=== PATIENT | female | born 1975 | race Caucasian/White ===

== ENCOUNTER 2016-08-01 14:31 | Emergency (ER) | payer BC ==
[2016-08-01 14:58] VITALS: BP 129/90
--- NOTE | 2016-08-01 15:27 | UC ---
Throat Pain/Nasal Lasha HPI - HPI Summary HPI Summary: cough and cold symptoms, laryngitis for 3-4 days, no fevers - History of Current Complaint Chief Complaint: UCGeneralIllness Stated Complaint: COUGH Time Seen by Provider: 08/01/16 14:56 Hx Obtained From: Patient Hx Last Menstrual Period: NOW ?: No Onset/Duration: Gradual Onset, Lasting Days, Still Present Severity: Mild Cough: Nonproductive Associated Signs & Symptoms: Positive: Hoarseness, Nasal Discharge - Allergies/Home Medications Allergies/Adverse Reactions: Allergies Allergy/AdvReac Type Severity Reaction Status Date / Time No Known Allergies Allergy Verified 08/01/16 14:50 Home Medications: Home Medications Escitalopram Oxalate [Lexapro] 1 tab BEDTIME 08/01/16 [History Confirmed ] PMH/Surg Hx/FS Hx/Imm Hx Previously Healthy: No Endocrine History Of: Denies: Diabetes, Thyroid Disease Cardiovascular History Of: Reports: Hypertension - ON MEDS Denies: Cardiac Disorders, Pacemaker/ICD Respiratory History Of: Denies: COPD, Asthma GI/ History Of: Denies: Ulcer, Renal Disease Cancer History Of: Denies: Breast Cancer - Surgical History Surgical History: Yes Surgery Procedure, Year, and Place: Appendectomy and hernia repair as a baby, Gallbladder 2012, Tonsils and adenoids removed - Family History Known Family History: Positive: Cardiac Disease, Hypertension Family History: Father - TIA - Social History Occupation: Employed Full-time Lives: With Family Alcohol Use: Rare Substance Use Type: None Smoking Status (MU): Former Smoker Type: Cigarettes Amount Used/How Often: 1/2 ppd Length of Time of Smoking/Using Tobacco: 22 years Have You Smoked in the Last Year: Yes - Immunization History Most Recent Influenza Vaccination: 2016 Review of Systems Constitutional: Fatigue Skin: Negative Eyes: Negative ENT: Sore Throat, Nasal Discharge Respiratory: Cough Cardiovascular: Negative Gastrointestinal: Negative Genitourinary: Negative Motor: Negative Neurovascular: Negative Musculoskeletal: Negative Neurological: Negative Psychological: Negative All Other Systems Reviewed And Are Negative: Yes Physical Exam Triage Information Reviewed: Yes Appearance: Well-Appearing, Well-Nourished, Obese Vital Signs: Initial Vital Signs Temp 97 F 08/01/16 14:53 Pulse 71 08/01/16 14:53 Resp 18 08/01/16 14:53 BP 129/90 08/01/16 14:53 Pulse Ox 100 08/01/16 14:53 Vital Signs Reviewed: Yes Eye Exam: Normal Eyes: Positive: Conjunctiva Clear ENT Exam: Normal ENT: Positive: Normal ENT inspection, Hearing grossly normal, Pharynx normal, Nasal drainage, TMs normal, Muffled/hoarse voice. Negative: Nasal congestion, Tonsillar swelling, Tonsillar exudate, Trismus Dental Exam: Normal Neck exam: Normal Neck: Positive: Supple, Nontender, No Lymphadenopathy Respiratory Exam: Normal Respiratory: Positive: Chest non-tender, Lungs clear, Normal breath sounds, No respiratory distress, No accessory muscle use Cardiovascular Exam: Normal Cardiovascular: Positive: RRR, No Murmur, Pulses Normal, Brisk Capillary Refill Musculoskeletal Exam: Normal Musculoskeletal: Positive: Strength Intact, ROM Intact, No Edema Neurological Exam: Normal Neurological: Positive: Alert, Muscle Tone Normal Psychological Exam: Normal Skin Exam: Normal Diagnostics - Laboratory Diagnostic Studies Completed/Ordered: RST(-) Throat Pain/Nasal Course/Dx - Course Assessment/Plan: rest, increase fluids, tylenol, ibuprofen follow with pcp prn - Differential Dx/Diagnosis Differential Diagnosis/HQI/PQRI: Laryngitis, Otitis Media, Pharyngitis, Sinusitis, URI Provider Diagnoses: URI, Laryngitis Discharge - Discharge Plan Condition: Stable Disposition: HOME Patient Education Materials: Laryngitis (ED), Viral Syndrome (ED) Forms: *Work Release Referrals: Mike Stoll NP [Primary Care Provider] - 5 Days
== END 2016-08-01 15:35 | disposition home or self-care (01) ==
LOC: UCEAST 14:31
DX: J06.9 Acute upper respiratory infection, unspecified (principal); J04.0 Acute laryngitis; I10 Essential (primary) hypertension; Z87.891 Personal history of nicotine dependence
CPT/HCPCS: 87651; 99211; G0463

== ENCOUNTER 2016-09-06 12:10 | Emergency (ER) | payer BC ==
[2016-09-06 12:48] LABS: Hematocrit 39 % (35-47); Hemoglobin 12.9 g/dl (12.0-16.0); Mean Corpuscular HGB Conc 33 g/dl (31-36); Mean Corpuscular Hemoglobin 27 pg (27-31); Mean Corpuscular Volume 81 fL (80-97); Mean Platelet Volume 8 um3 (7.4-10.4); Red Blood Count 4.85 10^6/ul (4.0-5.4); Red Cell Distribution Width 15 % (10.5-15); White Blood Count 6.6 10^3/ul (3.5-10.8)
--- NOTE | 2016-09-06 12:59 | RAD ---
Indication: Chest pain. Single frontal view of the chest performed at 1242 hours was reviewed. No prior study is available for comparison. No mediastinal shift is noted. Heart is of normal size and configuration. Lung garcia appear clear. IMPRESSION: NO ACTIVE CARDIOPULMONARY DISEASE IS NOTED.
[2016-09-06 13:02] LABS: Albumin 3.9 g/dL (3.2-5.2); BUN/Creatinine Ratio 18.3 (8-20); Calcium 8.9 mg/dL (8.6-10.3); EGFR African American 97.9 (>60); EGFR Non-African American 76.1 (>60); Globulin 2.7 g/dL (2-4); Potassium 4.1 mmol/L (3.5-5.0); Total Bilirubin 0.4 mg/dL (0.2-1.0); Total Protein 6.6 g/dL (6.4-8.9)
[2016-09-06] MEDS ORDERED: Ketorolac INJ* 30 MG/ML 1 ML VIAL IV PUSH ONE (13:17)
[2016-09-06 14:05] LABS: Urine Bacteria Absent (Absent); Urine Bilirubin Negative (Negative); Urine Glucose Negative (Negative); Urine Nitrite Negative (Negative)
--- NOTE | 2016-09-06 15:38 | ED ---
Roman Jaeger Billy, scribed for Clif Clayton MD on 09/06/16 at 1229 . HPI Chest Pain - HPI Summary HPI Summary: Patient is a 41 year-old female coming to [facility] presenting with non-radiating left-anterior chest pain starting at rest. Onset at 1100. She describes "contraction"-like pain at onset which lasted for several seconds (severity 10/ 10), before lessening to a constant sore pain (severity 5/10). Patient reports mild dizziness but denies any nausea, vomiting, or SOB. Patient has had chest pain in the past, but her last stress test was approximately 10 years ago. - History of Current Complaint Chief Complaint: EDChestPainROMI Time Seen by Provider: 09/06/16 12:14 Hx Obtained From: Patient Onset/Duration: Started Hours Ago, Still Present Time of Onset: 11:00 Timing: Constant Initial Severity: Moderate Current Severity: Moderate Pain Intensity: 5 Pain Scale Used: 0-10 Numeric Chest Pain Location: Left Anterior Chest Pain Radiates: No Character: Other: - "contraction" followed by soreness Aggravating Factor(s): Nothing Alleviating Factor(s): Nothing Associated Signs and Symptoms: Positive: Dizziness. Negative: Shortness of Breath, Nausea, Vomiting - Allergy/Home Medications Allergies/Adverse Reactions: Allergies Allergy/AdvReac Type Severity Reaction Status Date / Time No Known Allergies Allergy Verified 08/01/16 14:50 PMH/Surg Hx/FS Hx/Imm Hx Endocrine/Hematology History: Denies: Hx Diabetes, Hx Thyroid Disease Cardiovascular History: Reports: Hx Hypertension - ON MEDS Denies: Hx Pacemaker/ICD Respiratory History: Denies: Hx Asthma, Hx Chronic Obstructive Pulmonary Disease (COPD) GI History: Denies: Hx Ulcer History: Denies: Hx Renal Disease Sensory History: Denies: Hx Hearing Aid Psychiatric History: Denies: Hx Panic Disorder - Surgical History Surgery Procedure, Year, and Place: Appendectomy and hernia repair as a baby, Gallbladder 2012, Tonsils and adenoids removed Infectious Disease History: No Infectious Disease History: Denies: Hx Hepatitis, Hx Human Immunodeficiency Virus (HIV), History Other Infectious Disease, Traveled Outside the [place] in Last 30 Days - Family History Known Family History: Positive: Cardiac Disease, Hypertension Family History: Father - TIA - Social History Alcohol Use: Occasionally Hx Substance Use: No Substance Use Type: Reports: None Hx Tobacco Use: Yes Smoking Status (MU): Former Smoker Type: Cigarettes Amount Used/How Often: 1/2 ppd Length of Time of Smoking/Using Tobacco: 22 years Have You Smoked in the Last Year: Yes Review of Systems Positive: Chest Pain Negative: Shortness Of Breath Negative: Vomiting, Nausea Neurological: Other - dizziness All Other Systems Reviewed And Are Negative: Yes Physical Exam - Summary Physical Exam Summary: VITAL SIGNS: Reviewed. GENERAL: Patient is a well developed and nourished female who is lying comfortable in the stretcher. Patient is not in any acute respiratory distress. HEAD AND FACE: No signs of trauma. No ecchymosis, hematomas or skull depressions. No sinus tenderness. EYES: PERRLA, EOMI x 2, No injected conjunctiva, no nystagmus. EARS: Hearing grossly intact. Ear canals and tympanic membranes are within normal limits. MOUTH: Oropharynx within normal limits. NECK: Supple, trachea is midline, no adenopathy, no JVD, no carotid bruit, no c- spine tenderness, neck with full ROM. CHEST: Symmetric, Positive reproduction of tenderness at palpation in the left side of the chest LUNGS: Clear to auscultation bilaterally. No wheezing or crackles. CVS: Regular rate and rhythm, S1 and S2 present, no murmurs or gallops appreciated. ABDOMEN: Soft, non-tender. No signs of distention. No rebound no guarding, and no masses palpated. Bowel sounds are normal. EXTREMITIES: FROM in all major joints, no edema, no cyanosis or clubbing. NEURO: Alert and oriented x 3. No acute neurological deficits. Speech is normal and follows commands. SKIN: Dry and warm Triage Information Reviewed: Yes Vital Signs On Initial Exam: Initial Vitals Temp Pulse Resp BP Pulse Ox 97.4 F 62 18 121/88 97 09/06/16 12:19 09/06/16 12:19 09/06/16 12:19 09/06/16 12:19 09/06/16 12:19 Vital Signs Reviewed: Yes Diagnostics - Vital Signs Vital Signs Temp Pulse Resp BP Pulse Ox 09/06/16 12:19 97.4 F 62 18 121/88 97 - Laboratory Lab Results: Lab Results 09/06/16 09/06/16 09/06/16 Range/Units 12:26 12:26 12:26 WBC 6.6 (3.5-10.8) 10^3/ul RBC 4.85 (4.0-5.4) 10^6/ul Hgb 12.9 (12.0-16.0) g/dl Hct 39 (35-47) % MCV 81 (80-97) fL MCH 27 (27-31) pg MCHC 33 (31-36) g/dl RDW 15 (10.5-15) % Plt Count 235 (150-450) 10^3/ul MPV 8 (7.4-10.4) um3 Neut % (Auto) 61.9 (38-83) % Lymph % (Auto) 31.1 (25-47) % Riley % (Auto) 6.1 (1-9) % Eos % (Auto) 0.3 (0-6) % Baso % (Auto) 0.6 (0-2) % Absolute Neuts (auto) 4.1 (1.5-7.7) 10^3/ul Absolute Lymphs (auto) 2.1 (1.0-4.8) 10^3/ul Absolute Monos (auto) 0.4 (0-0.8) 10^3/ul Absolute Eos (auto) 0 (0-0.6) 10^3/ul Absolute Basos (auto) 0 (0-0.2) 10^3/ul Absolute Nucleated RBC 0 10^3/ul Nucleated RBC % 0 Sodium 135 (133-145) mmol/L Potassium 4.1 (3.5-5.0) mmol/L Chloride 106 (101-111) mmol/L Carbon Dioxide 25 (22-32) mmol/L Anion Gap 4 (2-11) mmol/L BUN 15 (6-24) mg/dL Creatinine 0.82 (0.51-0.95) mg/dL Est GFR ( Amer) 97.9 (>60) Est GFR (Non-Af Amer) 76.1 (>60) BUN/Creatinine Ratio 18.3 (8-20) Glucose 96 (70-100) mg/dL Lactic Acid 0.6 (0.5-2.0) mmol/L Calcium 8.9 (8.6-10.3) mg/dL Magnesium 2.0 (1.9-2.7) mg/dL Total Bilirubin 0.40 (0.2-1.0) mg/dL AST 14 (13-39) U/L ALT 14 (7-52) U/L Alkaline Phosphatase 48 (34-104) U/L CK-MB (CK-2) 3.1 (0.6-6.3) ng/mL Troponin I 0.00 (<0.04) ng/mL Total Protein 6.6 (6.4-8.9) g/dL Albumin 3.9 (3.2-5.2) g/dL Globulin 2.7 (2-4) g/dL Albumin/Globulin Ratio 1.4 (1-3) Result Diagrams: 09/06/16 12:26 09/06/16 12:26 Lab Statement: Any lab studies that have been ordered have been reviewed, and results considered in the medical decision making process. - Radiology CXR Xray Interpretation: No Acute Changes Radiology Interpretation Completed By: Radiologist - EKG 1213 EKG Interpretation: NSR 63, no ST elevation Chest Pain Course/Dx - Course Assessment/Plan: Patient is a 41 year-old female coming to [facility] presenting with non-radiating left-anterior chest pain starting at rest. Onset at 1100. She describes "contraction"-like pain at onset which lasted for several seconds (severity 10/10), before lessening to a constant sore pain (severity 5/10). Patient reports mild dizziness but denies any nausea, vomiting, or SOB. Patient has had chest pain in the past, but her last stress test was approximately 10 years ago. Bloodwork WNL. Trop #1 is 0.00, Trop #2 is also 0.00. UA shows no UTI. EKG shows NSR without ST elevation. CXR shows no acute pathology. CP was reproducible, therefore I believe she has chest wall pain. The patient will be discharged home to follow up with PCP since she has no co-morbidities. She was instructed to return to the ED with increased CP associated with N/V or diaphoresis. PE is less likely since she has no tachycardia and is not hypoxic. - Chest Pain Differential Diagnosis/HQI/PQRI: Acute AL, ACS, Chest Wall, GI Disease, Lower Respiratory Infection - Diagnoses Provider Diagnoses: Atypical chest pain Discharge - Discharge Plan Condition: Stable Disposition: HOME Patient Education Materials: Chest Pain (ED) Referrals: Mike Stoll NP [Primary Care Provider] - The documentation as recorded by the Roman starkey Billy accurately reflects the service I personally performed and the decisions made by me, Clif Clayton MD.
[2016-09-06 16:03] VITALS: BP 119/69
== END 2016-09-06 16:02 | disposition home or self-care (01) ==
LOC: ED 12:10
DX: R07.89 Other chest pain (principal); R11.2 Nausea with vomiting, unspecified; R06.02 Shortness of breath
CPT/HCPCS: 36415; 71010; 80053; 81003; 81015; 82553; 83605; 83735; 84484; 85025; 93005; 99282; J1885

== ENCOUNTER 2016-10-21 14:25 | Emergency (ER) | payer BC ==
[2016-10-21 17:01] VITALS: BP 133/72
--- NOTE | 2016-10-21 18:07 | RAD ---
HISTORY: Medial right knee pain, twisting injury COMPARISONS: June 14, 2016 VIEWS: 4, Frontal, lateral, axial, and oblique views of the right knee FINDINGS: BONE DENSITY: Normal. BONES: There is no displaced fracture. JOINTS: There is no arthropathy. There is no suprapatellar joint effusion or lipohemarthrosis. ALIGNMENT: There is no dislocation. SOFT TISSUES: Unremarkable. OTHER FINDINGS: None. IMPRESSION: NO ACUTE OSSEOUS INJURY. IF SYMPTOMS PERSIST, RECOMMEND REPEAT IMAGING.
--- NOTE | 2016-10-21 18:22 | UC ---
Knee Pain HPI - HPI Summary HPI Summary: TWO WEEKS AGO HYPEREXTENDED RIGHT KNEE. MILD SWELLING (ANTERIOR INFERIOR PATELLA OF) KNEE. - History of Current Complaint Chief Complaint: UCLowerExtremity Stated Complaint: KNEE INJURY Time Seen by Provider: 10/21/16 17:08 Hx Obtained From: Patient Hx Last Menstrual Period: 10/11/16 Onset/Duration: Sudden Onset, Lasting Weeks, Still Present Severity Initially: Moderate Severity Currently: Moderate Character: Dull, Aching Aggravating Factor(s): Movement, Weight Bearing, Prolonged Standing Alleviating Factor(s): Rest, Position, Cold Associated Signs And Symptoms: Positive: Swelling Able to Bear Weight: Yes - Risk Factors Septic Arthritis Risk Factor: Negative Gout Risk Factor: Negative - Allergies/Home Medications Allergies/Adverse Reactions: Allergies Allergy/AdvReac Type Severity Reaction Status Date / Time No Known Allergies Allergy Verified 10/21/16 16:55 PMH/Surg Hx/FS Hx/Imm Hx Previously Healthy: Yes Endocrine History Of: Denies: Diabetes, Thyroid Disease Cardiovascular History Of: Reports: Hypertension - ON MEDS Denies: Cardiac Disorders, Pacemaker/ICD Respiratory History Of: Denies: COPD, Asthma GI/ History Of: Denies: Ulcer, Renal Disease Cancer History Of: Denies: Breast Cancer - Surgical History Surgical History: Yes Surgery Procedure, Year, and Place: Appendectomy and hernia repair as a baby, Gallbladder 2012, Tonsils and adenoids removed - Family History Known Family History: Positive: Cardiac Disease, Hypertension Family History: Father - TIA - Social History Occupation: Employed Full-time Lives: With Family Alcohol Use: None Substance Use Type: None Smoking Status (MU): Former Smoker Type: Cigarettes Amount Used/How Often: 1/2 ppd Length of Time of Smoking/Using Tobacco: 22 years Have You Smoked in the Last Year: Yes - Immunization History Most Recent Influenza Vaccination: 2016 Review of Systems Constitutional: Negative Skin: Negative Eyes: Negative ENT: Negative Respiratory: Negative Cardiovascular: Negative Gastrointestinal: Negative Genitourinary: Negative Motor: Negative Neurovascular: Negative Musculoskeletal: Arthralgia, Myalgia Neurological: Negative Psychological: Negative All Other Systems Reviewed And Are Negative: Yes Physical Exam Triage Information Reviewed: Yes Appearance: Well-Appearing, No Pain Distress, Well-Nourished Vital Signs: Initial Vital Signs Temp 97.6 F 10/21/16 16:58 Pulse 58 10/21/16 16:58 Resp 14 10/21/16 16:58 BP 133/72 10/21/16 16:58 Pulse Ox 100 10/21/16 16:58 Vital Signs Reviewed: Yes Eye Exam: Normal ENT Exam: Normal ENT: Positive: Normal ENT inspection, Hearing grossly normal, Pharynx normal, TMs normal Dental Exam: Normal Neck exam: Normal Neck: Positive: Supple, Nontender, No Lymphadenopathy Respiratory Exam: Normal Respiratory: Positive: Chest non-tender, Lungs clear, Normal breath sounds, No respiratory distress, No accessory muscle use Cardiovascular Exam: Normal Cardiovascular: Positive: RRR, No Murmur, Pulses Normal Abdominal Exam: Normal Abdomen Description: Positive: Nontender, No Organomegaly Musculoskeletal: Positive: Strength Intact, ROM Intact, Edema @ - MILD ANTERIOR INFERIOR PATELLA Neurological Exam: Normal Psychological Exam: Normal Skin Exam: Normal Knee Pain Course/Dx - Differential Dx/Diagnosis Differential Diagnosis/HQI/PQRI: Sprain, Strain Provider Diagnoses: LEFT KNEE SPRAIN/INTERNAL INJURY Discharge - Discharge Plan Condition: Stable Disposition: HOME Patient Education Materials: Knee Sprain (ED) Forms: *Work Release Referrals: Mike Stoll NP [Primary Care Provider] - Amy Thayer MD [Medical Doctor] -
== END 2016-10-21 18:25 | disposition home or self-care (01) ==
LOC: UCEAST 14:25
DX: S83.92XA Sprain of unspecified site of left knee, initial encounter (principal); X58.XXXA Exposure to other specified factors, initial encounter; Y93.9 Activity, unspecified; Y92.9 Unspecified place or not applicable; I10 Essential (primary) hypertension; Z90.49 Acquired absence of other specified parts of digestive tract; Z87.891 Personal history of nicotine dependence
CPT/HCPCS: 99213; G0463

== ENCOUNTER 2018-05-16 06:56 | Emergency (ER) | payer OTHER ==
[2018-05-16] MEDS ORDERED: Diazepam TAB(*) 5 MG PO ONE (07:24)
--- NOTE | 2018-05-16 07:33 | ED ---
Back Pain - HPI Summary HPI Summary: Patient presents with progressive back to left hip pain over the past couple days. She reports this started as lower lumbar spine pain on the day it's not which is not abnormal for her she's been diagnosed with degenerative disc disease. Later that day she took a nap on the couch and when she woke she developed left hip pain. She reports she's had this since and pain is constant but is made worse with hip flexion and hurts most over the posterior region ( patient points to SI joint). She reports when the pain going, it radiates across her entire lower back but denies radicular symptoms down into the buttock or leg thank you including pain, numbness, tingling, weakness. She also denies change in bladder habits. She took 2 Aleve at about 6 AM this morning and feels this is starting to take the edge off. She was at 10 out of 10 pain and now is 7 out of 10 pain. She has also tried heat which helps intermittently. Feels there may be some element of muscle spasm in her left lower back. No acute injury otherwise. Works at the [employer] and stand on her feet most of her shift so called in today. Denies preceding fever, chills, chest pain, shortness of breath, abnormal bowel/ urinary symptoms. 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 Hx Last Menstrual Period: 10/11/16 Pain Intensity: 9 - Allergies/Home Medications Allergies/Adverse Reactions: Allergies Allergy/AdvReac Type Severity Reaction Status Date / Time No Known Allergies Allergy Verified 10/21/16 16:55 PMH/Surg Hx/FS Hx/Imm Hx Previously Healthy: Yes Endocrine/Hematology History: Denies: Hx Anticoagulant Therapy, Hx Blood Disorders, Hx Diabetes, Hx Thyroid Disease Cardiovascular History: Reports: Hx Hypercholesterolemia - on statin, Hx Hypertension - ON 2 MEDS Denies: Hx Myocardial Infarction, Hx Pacemaker/ICD Respiratory History: Denies: Hx Asthma, Hx Chronic Obstructive Pulmonary Disease (COPD) GI History: Denies: Hx Ulcer History: Denies: Hx Renal Disease Musculoskeletal History: Reports: Hx Arthritis - DDD lumbar spine Sensory History: Denies: Hx Hearing Aid Neurological History: Denies: Hx Peripheral Neuropathy, Hx Spinal Cord Injury Psychiatric History: Reports: Hx Anxiety - on meds, Hx Depression - on meds Denies: Hx Panic Disorder - Surgical History Surgery Procedure, Year, and Place: Appendectomy and hernia repair as a baby, Gallbladder 2012, Tonsils and adenoids removed Infectious Disease History: No Infectious Disease History: Denies: Hx Hepatitis, Hx Human Immunodeficiency Virus (HIV), History Other Infectious Disease, Traveled Outside the [place] in Last 30 Days - Family History Known Family History: Positive: Cardiac Disease, Hypertension Family History: Father - TIA - Social History 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 Negative: Edema Skin: Negative Neurological: Negative Positive: Anxious All Other Systems Reviewed And Are Negative: Yes Physical Exam Triage Information Reviewed: Yes Vital Signs On Initial Exam: Initial Vitals Temp Pulse Resp BP Pulse Ox 97.8 F 90 17 162/109 99 05/16/18 07:10 05/16/18 07:10 05/16/18 07:10 05/16/18 07:10 05/16/18 07:10 Vital Signs Reviewed: Yes Appearance: Positive: Well-Appearing, Pain Distress - appears to be in mild distress standing - pain is worse w/ transition from standing to lying on stretcher, Obese Skin: Positive: Warm, Skin Color Reflects Adequate Perfusion, Dry - no erythema , no ecchymosis, no lesions over affected area Head/Face: Positive: Normal Head/Face Inspection Eyes: Positive: EOMI ENT: Positive: Hearing grossly normal Respiratory/Lung Sounds: Positive: Breath Sounds Present Cardiovascular: Positive: Pulses are Symmetrical in both Upper and Lower Extremities Musculoskeletal: Positive: Pain @ - Lt SI is TTP; pain w/ Lt ...Pain w/ single leg wt bearing on Lt but she is able to do so w/o instability Diagnostics - Vital Signs Vital Signs Temp Pulse Resp BP Pulse Ox 05/16/18 07:10 97.8 F 90 17 162/109 99 - Laboratory Lab Statement: Any lab studies that have been ordered have been reviewed, and results considered in the medical decision making process. Discharge - Discharge Plan Referrals: Mike Stoll, IBETH [Primary Care Provider] -
--- NOTE | 2018-05-16 08:33 | RAD ---
HISTORY: lower back pain w/ Lt SI pain COMPARISONS: None VIEWS: 3 , Frontal view of the pelvis with frontal and frog-leg views of the left hip FINDINGS: BONE DENSITY: Normal. BONES: There is no displaced fracture. JOINTS: There is no arthropathy. ALIGNMENT: There is no dislocation. SOFT TISSUES: Unremarkable. OTHER FINDINGS: None. IMPRESSION: NO ACUTE OSSEOUS INJURY. IF SYMPTOMS PERSIST, RECOMMEND REPEAT IMAGING.
--- NOTE | 2018-05-16 08:35 | RAD ---
HISTORY: lower back pain w/ Lt SI pain COMPARISONS: December 28, 2013 VIEWS: 6 , Frontal, lateral, coned-down lateral sacral, and bilateral oblique views of the lumbar spine. FINDINGS: There is a transitional last lumbar type vertebral body which will be labeled L5 for the purposes of counting. ALIGNMENT: The alignment is normal. VERTEBRAL BODIES: The vertebral body heights are normal. The interpedicular distances are normal. There is internal and marginal osteophyte formation at L5-S1. JOINTS: There is facet osteoarthritis most pronounced at L3-L4, L4-L5 and L5-S1. There is partial sacralization of the L5 vertebral body. INTERVERTEBRAL DISCS: There is loss of intervertebral disc height at L5-S1, and to lesser extent at T12-L1. SOFT TISSUE: Unremarkable. OTHER: The pelvis is unremarkable. The lung bases are clear. IMPRESSION: DEGENERATIVE DISC DISEASE MOST PRONOUNCED AT L5-S1 WITH FACET OSTEOARTHRITIS ALONG THE LOWER LUMBAR SPINE
[2018-05-16 09:12] VITALS: BP 152/80
== END 2018-05-16 09:11 | disposition home or self-care (01) ==
LOC: ED 06:56
DX: M53.3 Sacrococcygeal disorders, not elsewhere classified (principal); M25.552 Pain in left hip; M54.5 Low back pain; M51.37 Other intervertebral disc degeneration, lumbosacral region; M47.816 Spondylosis without myelopathy or radiculopathy, lumbar region; I10 Essential (primary) hypertension; F41.9 Anxiety disorder, unspecified; F32.9 Major depressive disorder, single episode, unspecified; Z87.891 Personal history of nicotine dependence
CPT/HCPCS: 72110; 99282; A9270-GY

== ENCOUNTER 2018-05-18 09:38 | Emergency (ER) | payer OTHER ==
[2018-05-18 11:11] VITALS: BP 154/100
--- NOTE | 2018-05-18 11:49 | ED ---
Lower Extremity - HPI Summary HPI Summary: 43 yr old female with the complaint of low back pain that radiates into the left hip and around the thigh and groin. Seen in the ER two days ago and had xrays. DJD spine. - History of Current Complaint Chief Complaint: UCBackPain Stated Complaint: RIGHT LEG PAIN Time Seen by Provider: 05/18/18 11:30 Hx Last Menstrual Period: 05/05/18 - Irregular for two years Pain Intensity: 10 - Allergies/Home Medications Allergies/Adverse Reactions: Allergies Allergy/AdvReac Type Severity Reaction Status Date / Time No Known Allergies Allergy Verified 05/18/18 11:00 Home Medications: Home Medications Acetaminophen [Acetaminophen Extra Strength] 1,000 mg PO Q6H PRN 05/18/18 [ History Confirmed 05/18/18] Atorvastatin* [Lipitor*] 10 mg PO DAILY 05/18/18 [History Confirmed 05/18/18] Bupropion XL* [Wellbutrin XL *] 150 mg PO DAILY 05/18/18 [History Confirmed ] Escitalopram (NF) [Lexapro 20 mg (NF)] 20 mg PO DAILY 05/18/18 [History Confirmed 05/18/18] Losartan TAB* [Cozaar TAB*] 50 mg PO DAILY 05/18/18 [History Confirmed 05/18/18] Metoprolol Succinate XL TAB* [Toprol XL TAB*] 50 mg PO DAILY 05/18/18 [History Confirmed 05/18/18] Naproxen TAB* [Naprosyn 250 mg TAB*] 500 mg PO Q12H PRN 05/18/18 [History Confirmed 05/18/18] PMH/Surg Hx/FS Hx/Imm Hx Endocrine/Hematology History: Denies: Hx Anticoagulant Therapy, Hx Blood Disorders, Hx Diabetes, Hx Thyroid Disease Cardiovascular History: Reports: Hx Hypercholesterolemia - on statin, Hx Hypertension, Other Cardiovascular Problems/Disorders - JOE CHOLESTEROL Denies: Hx Myocardial Infarction, Hx Pacemaker/ICD Respiratory History: Denies: Hx Asthma, Hx Chronic Obstructive Pulmonary Disease (COPD) GI History: Denies: Hx Ulcer History: Denies: Hx Renal Disease Musculoskeletal History: Reports: Hx Arthritis - DDD lumbar spine Sensory History: Denies: Hx Hearing Aid Neurological History: Denies: Hx Peripheral Neuropathy, Hx Spinal Cord Injury Psychiatric History: Reports: Hx Anxiety - on meds, Hx Depression - on meds Denies: Hx Panic Disorder - Surgical History Surgery Procedure, Year, and Place: Cholecystectomy, 2011, [place]; T&A, ~1979 , [place]; Appendectomy and Herniorrhaphy as an Infectious Disease History: No Infectious Disease History: Denies: Hx Hepatitis, Hx Human Immunodeficiency Virus (HIV), History Other Infectious Disease, Traveled Outside the [place] in Last 30 Days - Family History Known Family History: Positive: Cardiac Disease, Hypertension Family History: Father - TIA - Social History Alcohol Use: None Hx Substance Use: No Substance Use Type: Reports: None Hx Tobacco Use: Yes Smoking Status (MU): Former Smoker Type: Cigarettes Amount Used/How Often: 1/2 ppd Length of Time of Smoking/Using Tobacco: 1 PPD x 25 Years Have You Smoked in the Last Year: Yes Review of Systems Constitutional: Negative Genitourinary: Other - no bowel or bladder incontinence. Positive: Other - back pain Negative: Paresthesia, Numbness All Other Systems Reviewed And Are Negative: Yes Physical Exam Triage Information Reviewed: Yes Vital Signs On Initial Exam: Initial Vitals Temp Pulse Resp BP Pulse Ox 97.8 F 100 18 154/100 99 05/18/18 10:59 05/18/18 10:59 05/18/18 10:59 05/18/18 10:59 05/18/18 10:59 Vital Signs Reviewed: Yes Appearance: Positive: Well-Appearing, No Pain Distress Skin: Positive: Warm, Skin Color Reflects Adequate Perfusion Head/Face: Positive: Normal Head/Face Inspection Eyes: Positive: EOMI Respiratory/Lung Sounds: Positive: Clear to Auscultation Cardiovascular: Positive: RRR Abdomen Description: Positive: Other: - obese Musculoskeletal: Positive: Other - no midline back tenderness. She is able to bear weight and walk. Neurological: Positive: Sensory/Motor Intact, Alert, Oriented to Person Place, Time, CN Intact II-III Psychiatric: Positive: Normal Diagnostics - Vital Signs Vital Signs Temp Pulse Resp BP Pulse Ox 05/18/18 10:59 97.8 F 100 18 154/100 99 - Laboratory Lab Statement: Any lab studies that have been ordered have been reviewed, and results considered in the medical decision making process. Lower Extremity Course/Dx - Course Course Of Treatment: 43 yr old with DJD and pain in low back that is radiating, and getting worse despite meds already on. REcommend she go to ER for MRI to evaluate spine and her symptoms further. - Diagnoses Provider Diagnoses: Back pain, Hypertension Discharge - Sign-Out/Discharge Documenting (check all that apply): Patient Departure All imaging exams completed and their final reports reviewed: No Studies - Discharge Plan Condition: Good Disposition: HOME-RECOMMEND TO ED Patient Education Materials: Back Pain (ED), Hypertension (ED) Referrals: Mike Stoll NP [Primary Care Provider] - Additional Instructions: you need to go to the ER now for further evaluation of your symptoms right now. - Billing Disposition and Condition Condition: GOOD Disposition: Home-Recommend to ED
== END 2018-05-18 11:54 | disposition home health service (06) ==
LOC: UCCORT 09:38
DX: M54.5 Low back pain (principal); M47.896 Other spondylosis, lumbar region; I11.9 Hypertensive heart disease without heart failure; E78.00 Pure hypercholesterolemia, unspecified; F32.9 Major depressive disorder, single episode, unspecified; F41.9 Anxiety disorder, unspecified; Z87.891 Personal history of nicotine dependence
CPT/HCPCS: 99212; G0463